=== PATIENT | female | born 1965 | race African-American/Black ===

== ENCOUNTER 2021-02-02 20:10 | Emergency (ER) | payer OTHER ==
[~2021-02-02] VITALS: Ht 172.7 cm; Wt 115.7 kg
[2021-02-02] MEDS ORDERED: [UNRECOGNIZED DRUG - OTHER] PO (20:23)
[2021-02-02] MEDS ORDERED: IRON325 M1 PO (20:23)
[2021-02-02] MEDS ORDERED: B12 ACTIVE1000 MCG PO (20:23)
[2021-02-02] MEDS ORDERED: STOOL SOFTNER (20:24)
[2021-02-02] MEDS ORDERED: SUPER THERAVIT1 EACH PO (20:24)
[2021-02-02 20:49] LABS: ABSOLUTE BASOPHILS 0.1 thou/uL (0.0-0.2); ABSOLUTE EOSINOPHILS 0.1 thou/uL (0.0-0.7); ABSOLUTE LYMPHOCYTES 3.8 thou/uL (0.8-5.3); ABSOLUTE MONOCYTES 0.5 thou/uL (0.0-1.2); ABSOLUTE NEUTROPHILS 3.6 thou/uL (1.6-8.1); BASOPHILS 0.7 %; EOSINOPHILS 1.2 %; HEMATOCRIT 38.2 % (37.0-47.0); HEMOGLOBIN 12.1 gm/dL (12.0-15.0); LYMPHOCYTES 46.5 %; MCH 26.2 pg (26.0-34.0); MCHC 31.6 g/dL (28.0-37.0); MCV 82.8 fL (80.0-100.0); MONOCYTES 6.6 %; MPV 6.7 fl. (7.2-11.1); NUCLEATED RBCS 0 /100WBC; PLATELET COUNT* 363 thou/uL (150-400); RBC 4.61 mil/uL (4.20-5.00); WBC 8.1 thou/uL (4.0-11.0)
[2021-02-02 21:03] LABS: CALCIUM 8.9 mg/dL (8.5-10.1); POTASSIUM 3.8 mmol/L (3.5-5.1)
[2021-02-02 21:07] LABS: ALBUMIN 3.7 g/dL (3.4-5.0); TOTAL BILIRUBIN 0.1 mg/dL (<0.1-1.0); TOTAL PROTEIN 8.3 g/dL (6.4-8.2)
[2021-02-02] MEDS ORDERED: LEVSIN-SL0.125 MG BUCCAL (21:59)
[2021-02-02] MEDS ORDERED: PREDNISONE 20 M20 MG PO (21:59)
[2021-02-02 22:18] VITALS: BP 124/86
== END 2021-02-02 22:18 | disposition home or self-care (01) ==
LOC: M.ERS 20:10
PROVIDERS: Nurse Practitioner Family
DX: R10.12 Left upper quadrant pain (principal); R05 Cough; Z88.6 Allergy status to analgesic agent; Z88.5 Allergy status to narcotic agent; Z91.018 Allergy to other foods

== ENCOUNTER 2021-02-18 09:01 | Emergency (ER) | payer OTHER ==
[~2021-02-18] VITALS: Ht 172.7 cm; Wt 117.5 kg
[~2021-02-18 09:01] MED LIST: B12 ACTIVE1000 MCG PO; IRON325 M1 PO; LEVSIN-SL0.125 MG BUCCAL; PREDNISONE 20 M20 MG PO; STOOL SOFTNER; SUPER THERAVIT1 EACH PO; [UNRECOGNIZED DRUG - OTHER] PO
[2021-02-18 09:39] LABS: ABSOLUTE BASOPHILS 0.1 thou/uL (0.0-0.2); ABSOLUTE EOSINOPHILS 0.1 thou/uL (0.0-0.7); ABSOLUTE LYMPHOCYTES 2.9 thou/uL (0.8-5.3); ABSOLUTE MONOCYTES 0.6 thou/uL (0.0-1.2); ABSOLUTE NEUTROPHILS 4.7 thou/uL (1.6-8.1); BASOPHILS 0.7 %; EOSINOPHILS 1.1 %; HEMATOCRIT 39.1 % (37.0-47.0); HEMOGLOBIN 12.5 gm/dL (12.0-15.0); LYMPHOCYTES 35.3 %; MCH 26.2 pg (26.0-34.0); MCHC 31.9 g/dL (28.0-37.0); MCV 82.1 fL (80.0-100.0); MONOCYTES 6.8 %; MPV 6.7 fl. (7.2-11.1); NUCLEATED RBCS 0 /100WBC; PLATELET COUNT* 376 thou/uL (150-400); POLYS 56.1 %; RBC 4.76 mil/uL (4.20-5.00); RDW-CV 14.5 % (10.5-14.5); WBC 8.3 thou/uL (4.0-11.0)
[2021-02-18 09:49] LABS: CALCIUM 8.8 mg/dL (8.5-10.1); POTASSIUM 3.7 mmol/L (3.5-5.1)
[2021-02-18 09:59] LABS: ALBUMIN 3.5 g/dL (3.4-5.0); TOTAL BILIRUBIN 0.4 mg/dL (<0.1-1.0); TOTAL PROTEIN 7.8 g/dL (6.4-8.2)
[2021-02-18 10:14] LABS: INR 0.9; PROTIME 10.1 Seconds (9.20-11.50)
[2021-02-18 11:15] VITALS: BP 110/68
--- NOTE | 2021-02-18 14:37 | EKG ---
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: : 1965 Requested By: Tank Bronson Order Number: [id number] MD: Dain Francisco Measurements Intervals [place] Rate: 78 P: 50 NH: 207 QRS: 21 QRSD: 95 T: 15 QT: 379 QTc: 432 Interpretive Statements Sinus rhythm Borderline prolonged NH interval Delayed R wave progression over the anterior precordium; anterior scar cannot be excluded No previous ECG available for comparison Electronically Signed On 02-18-2021 14:37:09 CDT by Dain Francisco [email or web address] <ELECTRONICALLY SIGNED> By: Dain Francisco MD, [facility] 02/18/21 1437 Dain Francisco MD, [facility] /EPI
== END 2021-02-18 11:15 | disposition home or self-care (01) ==
LOC: M.ERS 09:01
PROVIDERS: Family Medicine
DX: R06.02 Shortness of breath (principal); R05 Cough; Z88.6 Allergy status to analgesic agent; Z88.5 Allergy status to narcotic agent; Z91.018 Allergy to other foods

== ENCOUNTER → 2021-06-20 | Outpatient (CLI) | payer OTHER ==
[~2021-06-20] MED LIST changes: +NEURONTIN 300M300 M2 PO; +PROTONIX40 M2 PO; +PROTONIX40 M4 PO; +SINGULAIR 10 MG10 MG PO; +TRAMADOL 50 MG50 MG PO; +ZOFRAN ODT4 MG PO
== END ==
LOC: M.LAB 12:32
PROVIDERS: ATTEND Surgery
DX: Z20.822 Contact with and (suspected) exposure to COVID-19 (principal)

== ENCOUNTER 2021-06-21 06:13 | Observation (INO) | payer OTHER ==
[~2021-06-21] VITALS: Ht 172.7 cm; Wt 119.3 kg
--- NOTE | ~2021-06-21 | OP ---
[address] [address] OPERATIVE REPORT Name: LAQUITA CARBAJAL Room: [address] Amirah Palafox#: [id number] Admission: 06/21/21 Attend Phys: Mumtaz Feliz DO Discharge: Date of : 65 Report #: [id number] THIS REPORT FOR: cc: Haley Palma Jacqueline D. FNP Kramer, Adam P. DO ~ DATE OF SURGERY: 06/21/2021 REFERRING PHYSICIAN: Haley Palma, nurse practitioner. ANESTHESIA: General endotracheal and TAP blocks. PREOPERATIVE DIAGNOSIS: Symptomatic cholelithiasis. POSTOPERATIVE DIAGNOSES: Symptomatic cholelithiasis, intraabdominal adhesions. PROCEDURE: Laparoscopic cholecystectomy with lysis of adhesions. SURGEON: Mumtaz Feliz DO ENVIRONMENTAL REMEDIATION CONSULTANT: Neil Mattson, PGY-1 resident SECOND FLIGHT SERVICE AGENT: Student, Bryan Grewal, MS3. ANESTHESIA: General endotracheal and nerve blocks. ESTIMATED BLOOD LOSS: 20 mL. COMPLICATIONS: None. DESCRIPTION OF PROCEDURE: After obtaining proper consents and discussing risks and complications with the patient, she was taken to the operating room, laid in the supine position and administered general endotracheal anesthetic. TAP blocks were then performed by anesthesia. The patient was then prepped and draped in the usual sterile fashion. A timeout was performed. We confirmed the appropriate patient and procedure. Preoperative antibiotics had been given. SCDs were in place. We then made a small supraumbilical skin incision with #11 scalpel blade. This was carried down through the skin into the subcutaneous tissue using electrocautery for hemostasis. Once the fascia was encountered, it was incised along the midline, grasped and elevated with Karissa clamps. The peritoneum was then bluntly opened using a hemostat. This was all done above the area where the patient had a previous laparoscopic umbilical hernia repair. Once within the peritoneal cavity, we then placed 2-0 Vicryl sutures in a [id number] fashion to secure the Bj trocar which was then inserted and insufflation was begun. Once insufflation was complete, full visual inspection of the anterior abdominal organs was performed. [place] [address] OPERATIVE REPORT Name: ADELINELAQUITA MCKEON David Room: [address]#: [id number] Admission: 06/21/21 Attend Phys: Mumtaz Feliz DO Discharge: Date of : 65 Report #: [id number] the midline in the left upper quadrant. These adhesions appeared to be only omentum, but they were difficult to see with just the camera port and at this point, we then placed three more 5 mm trocars under direct vision. Once these were placed, we were able to move the camera around and then identified the adhesions along the midline, which again were just omentum. We did take down the adhesions along the midline and left upper quadrant using electrocautery as the patient was having left upper quadrant abdominal pain as well. Once these were all removed which took approximately 15 minutes, we then turned our attention to the gallbladder. The gallbladder was grasped and elevated. There were omental adhesions surrounding the entire gallbladder. The gallbladder was elevated and the omental adhesions were taken down using blunt dissection as well as electrocautery. Once we were able to identify Candi's pouch, we used immunofluorescence imaging in order to identify the common hepatic duct and common bile duct as well as the cystic duct. We then dissected the hepatoduodenal ligament down until we were able to visualize the cystic duct and cystic artery as they coursed directly into the gallbladder. These were both dissected free. We confirmed our critical view of safety using direct vision as well as immunofluorescence imaging. We then clipped the cystic duct and cystic artery proximally and distally and then divided them between clips. The gallbladder was then removed from the liver bed using electrocautery. Once this was complete, the cystic duct and cystic artery stumps and liver bed were all checked for any leak or bleeding. We again used immunofluorescence imaging to visualize and make sure there were no bile leaks. Once this was complete, the gallbladder was placed into an Endopouch. It was then removed through the umbilical incision. The insufflation was stopped, all air was released. Trocars were removed. The umbilical fascia was then closed using the 2 previously placed 0 Vicryl sutures plus 2 additional 0 Vicryl sutures. Skin incisions were all closed using 4-0 Monocryl in subcuticular stitches. Dermabond was then placed. The patient was awakened in the operating room and transported to recovery room in stable condition. Sponge, needle and instrument counts were all correct at the end of the procedure. By: [id number] Feliz DO /nesha
[~2021-06-21 06:13] MED LIST changes: -NEURONTIN 300M300 M2 PO; -TRAMADOL 50 MG50 MG PO; -ZOFRAN ODT4 MG PO
--- NOTE | 2021-06-21 13:58 | EKG ---
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 : 1965 Requested By: Mumtaz Feliz Order Number: [id number] MD: Lang Leslie Measurements Intervals [place] Rate: 71 P: 69 SC: 214 QRS: 3 QRSD: 99 T: 38 QT: 398 QTc: 433 Interpretive Statements Sinus rhythm poor r wave progression nonspecific t wave changes Prolonged SC interval Borderline low voltage, extremity leads Compared to ECG 02/18/2021 09:25:49 no change Electronically Signed On 06-21-2021 13:58:33 CDT by Lang Leslie [email or web address] <ELECTRONICALLY SIGNED> By: Lang Leslie MD, [facility] 06/21/21 1358 1246 1246 Lang Leslie MD, [facility] /EPI
[2021-06-21 15:36] VITALS: BP 144/69
[2021-06-21 20:30] VITALS: BP 131/72
[2021-06-22] VITALS: BP 134/67
[2021-06-22 04:10] VITALS: BP 107/59
[2021-06-22 05:30] LABS: ABSOLUTE LYMPHOCYTES 2.7 thou/uL (0.8-5.3); ABSOLUTE MONOCYTES 0.7 thou/uL (0.0-1.2); ABSOLUTE NEUTROPHILS 6.8 thou/uL (1.6-8.1); BASOPHILS 0.3 %; EOSINOPHILS 0.2 %; HEMATOCRIT 34.5 % (37.0-47.0); HEMOGLOBIN 10.9 gm/dL (12.0-15.0); LYMPHOCYTES 26.6 %; MCH 25.8 pg (26.0-34.0); MCHC 31.7 g/dL (28.0-37.0); MCV 81.4 fL (80.0-100.0); MONOCYTES 6.9 %; MPV 7.5 fl. (7.2-11.1); NUCLEATED RBCS 0 /100WBC; PLATELET COUNT* 308 thou/uL (150-400); RBC 4.24 mil/uL (4.20-5.00); RDW-CV 14.6 % (10.5-14.5); WBC 10.3 thou/uL (4.0-11.0)
[2021-06-22 05:51] LABS: ALBUMIN 3.2 g/dL (3.4-5.0); CALCIUM 8.2 mg/dL (8.5-10.1); CREATININE 1.3 mg/dL (0.6-1.3); POTASSIUM 3.8 mmol/L (3.5-5.1); TOTAL BILIRUBIN 0.4 mg/dL (<0.1-1.0)
[2021-06-22 07:15] VITALS: BP 121/74
[2021-06-22] MEDS ORDERED: TRAMADOL 50 MG50 MG PO (08:08)
[2021-06-22] MEDS ORDERED: NEURONTIN 300M300 M2 PO (08:08)
[2021-06-22] MEDS ORDERED: ZOFRAN ODT4 MG PO (08:08)
[2021-06-22 10:30] VITALS: BP 121/74
[2021-06-22 11:22] VITALS: BP 131/77
--- NOTE | 2021-06-22 18:06 | PATH ---
[address] [address] PATHOLOGY RPT PROCEDURE Name: LAQUITA CARBAJAL Room: [address] Amirah Palafox#: [id number] Admission: 06/21/21 Date of : 65 Discharge: 06/22/21 Report #: [id number] Path Case #: [id number] [facility] Accession Number: [id number] . 01 Material submitted: . gallbladder - GALLBLADDER . 01 Clinical history: . LAPAROSCOPIC CHOLECYSTECTOMY CALCULUS OF GALLBLADDER CHOLELITHIASIS . 02 Diagnosis: Gallbladder: - Chronic cholecystitis with luminal, mucosal to mucosal adhesions. (MARTHA:cari; 06/22/2021) MBR 06/22/2021 1704 Local . 02 Electronically signed: . Orville King MD, Pathologist NPI- [id number] . 01 Gross description: . Fixative: Formalin Labeled: gallbladder Specimen received: Intact Dimensions: 8.5 x 4.5 x 2.9 cm Lymph node: None Serosa: Garcia-solis, dusky and slightly edematous Calculi: None identified within the specimen or specimen container Mucosa: Solis, green and velvety with extensive mucosal bridging (ranging from 1.0 cm in length by 0.1 cm in diameter to 1.5 cm in length by 0.3 cm in diameter) that extends across the lumen and involves the entirety of the mucosa Average wall thickness: 0.1 cm Photographs are taken A1-A3: Gallbladder, represented to include the cystic duct margin submitted in A1 (QUILEUTE; 06/21/2021) DKA/DKA 06/21/2021 1631 Local . 02 Pathologist provided ICD-10: K81.1 . 02 CPT . 358909 Specimen Comment: A courtesy copy of this report has been sent to [phone], [facility] Specimen Comment: [address] [place] [address] PATHOLOGY RPT PROCEDURE Name: LAQUITA CARBAJAL Room: [address]#: [id number] Admission: 06/21/21 Date of : 65 Discharge: 06/22/21 Report #: [id number] Path Case #: [id number] Specimen Comment: Report sent to / DR MIRANDA Performed at: [address], [place], [place] [id number] MD Rich Kwong MD Phone: [phone] Performed at: 02 [facility] [address], [place], [place] [id number] MD Orville King MD Phone: [phone]
== END 2021-06-22 13:21 | disposition home or self-care (01) ==
LOC: M.SUR 06:13 → M.TBA 07:12 → M.3W 07:12 → M.TBA 07:12 → M.PRE 10:06 → EDSTATUS 11:14 → M.PRE 11:21 → M.3W 11:58 → M.PRE 12:19 → M.3W 06-22 13:21
PROVIDERS: ADMIT Surgery; ATTEND Surgery
DX: K80.20 Calculus of gallbladder without cholecystitis without obstruction (principal); K21.9 Gastro-esophageal reflux disease without esophagitis